=== PATIENT | female | born 1960 | race Caucasian/White ===

== ENCOUNTER → 2016-12-29 | Outpatient (CLI) | payer BC | LOC: LAB 16:30 | DX: Z00.00 Encounter for general adult medical examination without abnormal findings (principal) ==

== ENCOUNTER → 2017-01-06 | Outpatient (CLI) | payer BC | LOC: LAB 17:03 | DX: Z12.11 Encounter for screening for malignant neoplasm of colon (principal) ==

== ENCOUNTER 2024-03-23 08:45 | Emergency (ER) | payer BC ==
[2024-03-23] MEDS ORDERED: PRILOSEC OTC20 MG PO (08:52)
[2024-03-23 09:02] LABS: BASO # 0.02 K/mm3 (0.02-0.10); EOS # 0.01 K/mm3 (0.04-0.40); EOS % 0.1 % (1.0-5.0); HEMATOCRIT 35.8 % (37.0-47.0); HEMOGLOBIN 11.9 g/dL (12.5-16.0); LYMPH# 1.02 K/mm3 (1.50-4.00); MEAN CELL VOLUME 87 fl (78-100); MEAN CORPUSCULAR HEMOGLOBIN 29 pg (27-31); MEAN CORPUSCULAR HGB CONC 33 g/dL (33-37); MEAN PLATELET VOLUME 8.6 fl (7.4-10.4); MONO # 1.24 K/mm3 (0.20-0.80); NEU # 14.83 K/mm3 (1.40-6.50); PLATELET COUNT 383 K/mm3 (130-400); RED CELL DISTRIBUTION WIDTH 11.8 % (11.5-14.5); WHITE BLOOD COUNT 17.2 K/mm3 (4.8-10.8)
[2024-03-23 09:13] LABS: ALBUMIN 3.5 g/dL (3.4-4.8)
[2024-03-23 09:14] LABS: CALCIUM 9.1 mg/dL (8.3-10.5)
[2024-03-23] MEDS ORDERED: Ondansetron 4 MG/2 ML VIAL IV ONE (09:15)
[2024-03-23] MEDS ORDERED: fentaNYL 100 MCG/2 ML VIAL IV ONE (09:15)
[2024-03-23 09:16] LABS: TOTAL PROTEIN 7.5 g/dL (6.2-8.1)
[2024-03-23 09:17] LABS: TOTAL BILIRUBIN 0.4 mg/dL (0.2-1.2)
[2024-03-23] MEDS ORDERED: Iohexol 300 - 100 ML VIAL IV ONE (09:58)
[2024-03-23 10:12] LABS: URINE APPEARANCE CLOUDY (CLEAR); URINE COLOR YELLOW (YELLOW)
[2024-03-23 10:13] LABS: PH-URINE 7.5 (5.0 - 8.0); URINE BILIRUBIN NEGATIVE (NEGATIVE); URINE BLOOD NEGATIVE (NEGATIVE); URINE GLUCOSE NEGATIVE (NEGATIVE); URINE KETONE TRACE (NEGATIVE); URINE LEUKOCYTE ESTERASE 1+ (NEGATIVE); URINE NITRATE POSITIVE (NEGATIVE); URINE PROTEIN(semi-quant) 1+ (NEGATIVE); URINE WBC >50 /hpf (0-3)
[2024-03-23] MEDS ORDERED: Morphine 4 MG/ML VIAL IV ONE ×3 (10:45→13:00)
[2024-03-23] MEDS ORDERED: Piperacillin/Tazobactam Sodium 4.5 GM in NS 100 ML IV ONE (12:00)
[2024-03-23 13:50] VITALS: BP 117/80
== END 2024-03-23 13:46 | disposition short-term general hospital (02) ==
LOC: ED 08:45
PROVIDERS: Nurse Practitioner Family
DX: K57.20 Diverticulitis of large intestine with perforation and abscess without bleeding (principal); N39.0 Urinary tract infection, site not specified; F17.200 Nicotine dependence, unspecified, uncomplicated; Z90.49 Acquired absence of other specified parts of digestive tract
CPT/HCPCS: J2270; J2405; J2543; J3010; Q9967

== ENCOUNTER → 2024-04-04 | Outpatient (CLI) | payer BC ==
[~2024-04-04] MED LIST: PRILOSEC OTC20 MG PO
[2024-04-04 15:38] LABS: BASO # 0.04 K/mm3 (0.02-0.10); EOS # 0.11 K/mm3 (0.04-0.40); EOS % 0.8 % (1.0-5.0); HEMATOCRIT 36.3 % (37.0-47.0); HEMOGLOBIN 11.8 g/dL (12.5-16.0); LYMPH# 1.72 K/mm3 (1.50-4.00); MEAN CELL VOLUME 89 fl (78-100); MEAN CORPUSCULAR HEMOGLOBIN 29 pg (27-31); MEAN CORPUSCULAR HGB CONC 33 g/dL (33-37); MEAN PLATELET VOLUME 8.1 fl (7.4-10.4); MONO # 0.79 K/mm3 (0.20-0.80); NEU # 10.64 K/mm3 (1.40-6.50); PLATELET COUNT 617 K/mm3 (130-400); RED BLOOD COUNT 4.09 M/mm3 (4.10-5.30); RED CELL DISTRIBUTION WIDTH 12.7 % (11.5-14.5); WHITE BLOOD COUNT 13.4 K/mm3 (4.8-10.8)
[2024-04-04 15:44] LABS: ALBUMIN 3.6 g/dL (3.4-4.8)
[2024-04-04 15:45] LABS: CALCIUM 9.5 mg/dL (8.3-10.5)
[2024-04-04 15:46] LABS: TOTAL PROTEIN 7.9 g/dL (6.2-8.1)
[2024-04-04 15:47] LABS: URINE APPEARANCE CLEAR (CLEAR); URINE BILIRUBIN NEGATIVE (NEGATIVE); URINE BLOOD TRACE-LYSED (NEGATIVE); URINE COLOR YELLOW (YELLOW); URINE GLUCOSE NEGATIVE (NEGATIVE); URINE KETONE NEGATIVE (NEGATIVE); URINE LEUKOCYTE ESTERASE 1+ (NEGATIVE); URINE NITRATE NEGATIVE (NEGATIVE); URINE PROTEIN(semi-quant) NEGATIVE (NEGATIVE)
[2024-04-04 15:48] LABS: TOTAL BILIRUBIN 0.3 mg/dL (0.2-1.2)
[2024-04-04 15:53] LABS: MAGNESIUM 1.99 mg/dL (1.60-2.60)
== END ==
LOC: LAB 15:19
PROVIDERS: Internal Medicine
DX: K57.20 Diverticulitis of large intestine with perforation and abscess without bleeding (principal); E78.2 Mixed hyperlipidemia; N39.0 Urinary tract infection, site not specified